=== PATIENT | female | born 1975 | race Two or more races ===

== ENCOUNTER 2017-12-08 09:45 | Day surgery (SDC) | payer OTHER ==
[2017-12-08] MEDS ORDERED: NEXIUM 24HR20 MG PO (13:45)
== END 2017-12-08 14:25 | disposition home or self-care (01) ==
LOC: AMB-ENDOS 09:45
DX: K29.60 Other gastritis without bleeding (principal); K44.9 Diaphragmatic hernia without obstruction or gangrene